=== PATIENT | female | born 2000 | race Caucasian/White ===

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

== ENCOUNTER 2023-01-12 17:36 | Emergency (ER) | payer BC, OTHER | END 2023-01-12 18:27 | disposition home or self-care (01) | LOC: MW.ED 17:36 | DX: S01.81XA Laceration without foreign body of other part of head, initial encounter (principal); W33.02XA Accidental discharge of hunting rifle, initial encounter | CPT/HCPCS: 12011; 99282; 99283 ==